=== PATIENT | male | born 1990 | race Caucasian/White ===

== ENCOUNTER 2020-02-17 22:40 | Emergency (ER) | payer OTHER ==
[~2020-02-17] VITALS: Ht 185.4 cm; Wt 60.0 kg
[2020-02-17 22:42] VITALS: BP 141/84
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
[2020-02-18] MEDS ORDERED: ACETAMINOPHEN 500 MG TABLET PO ONE
[2020-02-18] MEDS ORDERED: ACETAMINOPHEN 500 MG TABLET ONE (00:15)
== END 2020-02-18 00:22 | disposition home or self-care (01) ==
LOC: ED 23:41
DX: S31.139A Puncture wound of abdominal wall without foreign body, unspecified quadrant without penetration into peritoneal cavity, initial encounter (principal); S90.111A Contusion of right great toe without damage to nail, initial encounter; B86 Scabies; W45.8XXA Other foreign body or object entering through skin, initial encounter; Y93.89 Activity, other specified; Y92.89 Other specified places as the place of occurrence of the external cause; Y99.8 Other external cause status
CPT/HCPCS: 11740; 99283; 99284